=== PATIENT | female | born 1975 | race Caucasian/White ===

== ENCOUNTER 2017-11-11 08:28 | Day surgery (SDC) | payer OTHER ==
[2017-11-11] MEDS ORDERED: LIDOCAINE 2% MDV (20MG/ML) 20ML VIAL IV ONE (08:29)
[2017-11-11] MEDS ORDERED: FENTANYL PF 100MCG/2ML VIAL IV ONE (08:29)
[2017-11-11] MEDS ORDERED: PROPOFOL 10 MG/ML VIAL IV ONE (08:29)
--- NOTE | 2017-11-11 12:30 | Operative Note ---
DATE OF SURGERY: 11/11/2017 OPERATION: ESOPHAGOGASTRODUODENOSCOPY. PREOPERATIVE DIAGNOSIS: Noncardiac chest pain. POSTOPERATIVE DIAGNOSIS: Normal EGD. PROCEDURE: After informed consent was obtained from the patient, she was placed in the left lateral decubitus position in the endoscopy suite, sedated and monitored by the department of anesthesia. A well-lubricated QMD646 gastroscope was placed in the posterior oropharynx and under direct visualization passed to the proximal esophagus. The endoscope was advanced through the proximal, mid, and distal esophagus. The esophagus in its length, GE junction, gastric body, antrum, pylorus, duodenal bulb and sweep were unremarkable. No polyps, mass lesions, or inflammation was seen. No strictures were seen. J-turn views of the proximal stomach were unremarkable. The endoscope was then straightened. The antrum and duodenum were again inspected and were unremarkable. The endoscope was then retracted through the course of the proximal stomach and esophagus. No additional abnormalities or irregularities were seen upon retrograde examination of the esophagus. RECOMMENDATIONS: It is unclear the source of her noncardiac chest pain but perhaps there may be an esophageal spastic component given the fact she has had dysphagia associated with her pain. I suggested she consider a trial of a PPI for 3 months to see if it alleviates her symptoms. As always, thank you for allowing me to participate in the healthcare of your patients. CC: Dr. Ly GUZMÁN
== END 2017-11-11 10:12 | disposition home or self-care (01) ==
LOC: HOP 08:28
PROVIDERS: ATTEND Internal Medicine Gastroenterology
DX: R07.89 Other chest pain (principal)
CPT/HCPCS: 43235; 00740; J3010